=== PATIENT | female | born 1975 | race Caucasian/White ===

== ENCOUNTER 2025-03-29 10:28 | Outpatient (CLI) | payer OTHER | END 2025-03-29 10:29 | disposition home or self-care (01) | LOC: CSHSLEEP 10:28 | PROVIDERS: ATTEND Student in an Organized Health Care Education/Training Program | DX: G47.33 Obstructive sleep apnea (adult) (pediatric) (principal); R53.83 Other fatigue; R51.9 Headache, unspecified; F41.9 Anxiety disorder, unspecified; R06.83 Snoring; G47.00 Insomnia, unspecified | CPT/HCPCS: 95811 ==